=== PATIENT | female | born 1965 | race African-American/Black ===

== ENCOUNTER 2018-01-16 12:36 | Emergency (ER) | payer OTHER ==
[~2018-01-16] VITALS: Ht 170.2 cm; Wt 99.0 kg
[~2018-01-16 12:36] MED LIST: ALBU0.086 INH; ALPR0.5T99 PO; AMIT24CA9 PO; AMIT8CAP6 OR; ASPI1TAB57 PO; ASPI81 PO; BETH10TA2 PO; BETH25TA3 PO; CIPR500T4 PO; COUM10TA PO; DIAZ2 PO; DILTCD240 PO; GLUCTAB PO; HYDR-3366 PO; ISOS30 OR; METF500T PO; METO25TA3 PO; MONT10TA2 PO; NITR0.4S SL; NITR1SUB3 SL; PANT20TA2 PO; ROSU20 PO; TRAM50TA PO; TUSSSUS PO; WARF-21 PO; ZOLP10TA3 PO
[2018-01-16 12:54] VITALS: BP 105/55; PULSE 89; RESP 16; TEMP 98.4; O2SAT 98
[2018-01-16 13:25] LABS: BASOPHIL % 0.6 % (0.0-2.0); EOSINOPHIL # 0.1 TH/MM3 (0-0.4); EOSINOPHIL % 1.2 % (0.0-4.0); HEMATOCRIT 36.6 % (35.0-46.0); HEMOGLOBIN 12.3 GM/DL (11.6-15.3); LYMPH % 39.2 % (9.0-44.0); LYMPHOCYTE # 2.9 TH/MM3 (1.0-4.8); MEAN CELL VOLUME 84.4 FL (80.0-100.0); MEAN CORPUSCULAR HEMOGLOBIN 28.3 PG (27.0-34.0); MEAN CORPUSCULAR HGB CONC 33.5 % (32.0-36.0); MEAN PLATELET VOLUME 9.8 FL (7.0-11.0); MONO % 5.9 % (0.0-8.0); MONOCYTE # 0.4 TH/MM3 (0-0.9); NEUT % 53.1 % (16.0-70.0); PLATELET COUNT 256 TH/MM3 (150-450); RED BLOOD COUNT 4.33 MIL/MM3 (4.00-5.30); RED CELL DISTRIBUTION WIDTH 14.8 % (11.6-17.2); WHITE BLOOD COUNT 7.5 TH/MM3 (4.0-11.0)
[2018-01-16 13:32] LABS: INTERNATIONAL NORMALIZED RATIO 1.8 RATIO; PROTHROMBIN TIME - PATIENT 18.1 SEC (9.8-11.6)
[2018-01-16 13:40] LABS: ALBUMIN 3.5 GM/DL (3.4-5.0); ALT (GPT) 35 U/L (10-53); AST (GOT) 23 U/L (15-37); BICARBONATE 26.8 MEQ/L (21.0-32.0); BLOOD UREA NITROGEN 9 MG/DL (7-18); CALCIUM 8.9 MG/DL (8.5-10.1); CHLORIDE 106 MEQ/L (98-107); CREATININE 0.94 MG/DL (0.50-1.00); GLOMERULAR FILTRATION RATE 63 ML/MIN (>89); GLUCOSE,RANDOM 151 MG/DL (74-106); SODIUM (NA) 141 MEQ/L (136-145)
[2018-01-16 13:41] LABS: ALKALINE PHOSPHATASE 107 U/L (45-117); TOTAL BILIRUBIN ADULT 0.4 MG/DL (0.2-1.0)
[2018-01-16] MEDS ORDERED: AMLO5TAB2 PO (14:58)
[2018-01-16] MEDS ORDERED: ONDANSETRON HCL 4 MG/2 ML VIAL IV ONE (15:00)
[2018-01-16] MEDS ORDERED: SODIUM CHLOR 0.9% 1000 ML INJ 1,000 ML IV ONE (15:00)
--- NOTE | 2018-01-16 15:06 | PD ---
HPI Chief Complaint: Syncope/Near-Syncope Time Seen by Provider: 14:49 Travel History International Travel<30 days: No Contact w/Intl Traveler<30days: No Traveled to known affect area: No History of Present Illness HPI The patient was seen and examined in the presence of the nurse. This patient reported that shortly before noon she had a spell of passing out at work. She was feeling dizzy and lightheaded prior to that. She saw her lead java software engineer yesterday. He started a new medication at night which is amlodipine 10 mg. She took it for the first time last night. Today her blood pressure is been lower than usual. Currently is 105/55. 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 She does not have any chest pain. She reports that she hit her head when she passed out and complains of headache. She does not have any neck pain. Severity is moderate. No alleviating factors. No exacerbating factors. Duration 3 hours PFSH Past Medical History Asthma: No Blood Disorders: No Heart Rhythm Problems: No Cancer: No Cardiovascular Problems: No High Cholesterol: No Chemotherapy: No Chest Pain: No Congestive Heart Failure: No COPD: No Diabetes: Yes Patient Takes Glucophage: Yes Endocrine: Yes Gastrointestinal Disorders: Yes (gastroparesis) Genitourinary: No Immune Disorder: No Implanted Vascular Access Dvce: Yes Musculoskeletal: No Neurologic: No Psychiatric: No Reproductive: No Respiratory: No Myocardial Infarction: Yes (2008) Radiation Therapy: No Sleep Apnea: No Tetanus Vaccination: < 5 Years Influenza Vaccination: No ?: Not : 2 Para: 1 Miscarriage: 0 : 0 Past Surgical History Abdominal Surgery: Yes (UMBILICAL HERNIA REPAIR) Body Medical Devices: cervical fusion plate Gynecologic Surgery: Yes (HYSTERECTOMY) Hysterectomy: Yes (FULL) Other Surgery: Yes (LAPAROTOMY, LYMPH NODE BIOPSY (GROIN)) Social History Alcohol Use: No Tobacco Use: No Substance Use: No Allergies-Medications (Allergen,Severity, Reaction): Coded Allergies: acetaminophen (Unverified Allergy, Severe, RASH, 01/16/18) adhesive (Unverified Allergy, Severe, RASH, 01/16/18) propoxyphene (Unverified Allergy, Severe, RASH, 01/16/18) Reported Meds & Prescriptions Reported Meds & Active Scripts Active Warfarin 7.5 Mg Tab 7.5 Mg PO DAILY MOWEFR Warfarin 7.5 Mg Tab 8.5 Mg PO DAILYSUTUTHSA Rumely (Hydrocodone-Acetaminophen) 10-325 Mg Tab 1 Tab PO Q4H PRN Reported Amlodipine (Amlodipine Besylate) 5 Mg Tab 5 Mg PO DAILY Zolpidem (Zolpidem Tartrate) 10 Mg Tab 10 Mg PO HS PRN Tramadol (Tramadol HCl) 50 Mg Tab 50 Mg PO Q4H PRN Nitroglycerin SL (Nitroglycerin) 0.4 Mg Subl 0.4 Mg SL DIRECTED PRN ONE TABLET UNDER THE TONGUE NEEDED FOR CHEST PAIN, MAY REPEAT EVERY FIVE MINUTES FOR A TOTAL OF 3 DOSES OR CALL 911 IF NO RELIEF Amitiza (Lubiprostone) 24 Mcg Cap 24 Mg PO BID Pantoprazole (Pantoprazole Sodium) 20 Mg Tab 20 Mg PO DAILY Bethanechol 10 Mg Tab 10 Mg PO BID Metformin (Metformin HCl) 500 Mg Tab 500 Mg PO BIDPC With meals Aspirin 81 (Aspirin) 81 Mg Tabdr 2 Tab PO DAILY Review of Systems General / Constitutional: No: Fever Eyes: No: Visual changes HENT: Positive: Headaches, Lightheadedness Cardiovascular: Positive: Syncope, No: Chest Pain or Discomfort Respiratory: No: Shortness of Breath Gastrointestinal: Positive: Nausea, No: Abdominal Pain Genitourinary: No: Dysuria Musculoskeletal: No: Pain Skin: No Rash Neurologic: Positive: Dizziness, Syncope, Headache, No: Weakness Psychiatric: No: Depression Endocrine: No: Polydipsia Hematologic/Lymphatic: No: Easy Bruising Physical Exam Narrative GENERAL: Well-nourished, well-developed patient in no apparent distress. SKIN: Focused skin assessment reveals no rash and nodules. Skin is Warm and dry. HEAD: Atraumatic. Normocephalic. EYES: Pupils equal and round. No scleral icterus. No injection or drainage. ENT: No nasal bleeding or discharge. Mucous membranes pink and moist. NECK: Trachea midline. No JVD. No midline tenderness CARDIOVASCULAR: Regular rate and rhythm. No murmur appreciated. RESPIRATORY: No accessory muscle use. Clear to auscultation. Breath sounds equal bilaterally. GASTROINTESTINAL: Abdomen soft, non-tender, nondistended. Hepatic and splenic margins not palpable. MUSCULOSKELETAL: No obvious deformities. No clubbing. No cyanosis. No edema. NEUROLOGICAL: Awake and alert. No obvious cranial nerve deficits. Motor grossly within normal limits. Normal speech. PSYCHIATRIC: Appropriate mood and affect; insight and judgment normal. Data Data Last Documented VS Vital Signs Date Time Temp Pulse Resp B/P (MAP) Pulse Ox O2 Delivery O2 Flow Rate FiO2 01/16/18 17:31 82 17 138/83 (101) 98 Room Air 01/16/18 12:54 98.4 Orders Orders Electrocardiogram (01/16/18 12:56) Complete Blood Count With Diff (01/16/18 12:56) Comprehensive Metabolic Panel (01/16/18 12:56) Iv Access Insert/Monitor (01/16/18 12:56) Prothrombin Time / Inr (Pt) (01/16/18 13:00) Ct Brain W/O Iv Contrast(Rout) (01/16/18 ) Sodium Chlor 0.9% 1000 Ml Inj (Ns 1000 M (01/16/18 15:00) Ondansetron Inj (Zofran Inj) (01/16/18 15:00) Labs Laboratory Tests Test 01/16/18 13:00 White Blood Count 7.5 TH/MM3 Red Blood Count 4.33 MIL/MM3 Hemoglobin 12.3 GM/DL Hematocrit 36.6 % Mean Corpuscular Volume 84.4 FL Mean Corpuscular Hemoglobin 28.3 PG Mean Corpuscular Hemoglobin Concent 33.5 % Red Cell Distribution Width 14.8 % Platelet Count 256 TH/MM3 Mean Platelet Volume 9.8 FL Neutrophils (%) (Auto) 53.1 % Lymphocytes (%) (Auto) 39.2 % Monocytes (%) (Auto) 5.9 % Eosinophils (%) (Auto) 1.2 % Basophils (%) (Auto) 0.6 % Neutrophils # (Auto) 4.0 TH/MM3 Lymphocytes # (Auto) 2.9 TH/MM3 Monocytes # (Auto) 0.4 TH/MM3 Eosinophils # (Auto) 0.1 TH/MM3 Basophils # (Auto) 0.0 TH/MM3 CBC Comment DIFF FINAL Differential Comment Prothrombin Time 18.1 SEC Prothromb Time International Ratio 1.8 RATIO Blood Urea Nitrogen 9 MG/DL Creatinine 0.94 MG/DL Random Glucose 151 MG/DL Total Protein 8.0 GM/DL Albumin 3.5 GM/DL Calcium Level 8.9 MG/DL Alkaline Phosphatase 107 U/L Aspartate Amino Transf (AST/SGOT) 23 U/L Alanine Aminotransferase (ALT/SGPT) 35 U/L Total Bilirubin 0.4 MG/DL Sodium Level 141 MEQ/L Potassium Level 3.8 MEQ/L Chloride Level 106 MEQ/L Carbon Dioxide Level 26.8 MEQ/L Anion Gap 8 MEQ/L Estimat Glomerular Filtration Rate 63 ML/MIN [facility] Medical Decision Making Medical Screen Exam Complete: Yes Emergency Medical Condition: Yes Medical Record Reviewed: Yes Differential Diagnosis Hypotensive episode, vasovagal episode, cardiac arrhythmia, medication side effect Narrative Course I have reviewed the patient's electronic medical record. Patient was seen here 13 months ago for syncope and I reviewed that hospitalization CBC and metabolic profiles are normal Her EKG shows a sinus rhythm without ectopy or ST elevation Extended cardiac monitoring reveals sinus rhythm without ectopy I gave her 1 L normal saline IV and IV Zofran Will reassess her pressure and observe her on the monitor for a time Brain CT is negative After a lengthy observation. She is doing well. She is not symptomatic at this time. She has a standing blood pressure 136 systolic I advised her to cut her amlodipine in half and continue to track her blood pressures closely. She replies that she does not want the medicine anymore and is not going to take it. I advised her to discuss with her prescribing physician Diagnosis Primary Impression: Syncopal episodes Qualified Codes: R55 - Syncope and collapse Additional Impressions: Head injury Qualified Codes: S09.90XA - Unspecified injury of head, initial encounter Medication side effect Additional Instructions: The patient was advised to follow up with their physician and return if they worsen. Check and record blood pressure daily Cut amlodipine in half or stop taking it Med/Other Pt SpecificInfo: Other Disposition: 01 DISCHARGE HOME Condition: Stable Jeffrey Salvador MD Jan 16, 2018 15:06
--- NOTE | 2018-01-16 15:57 | RADRPT ---
EXAM DATE/TIME: 01/16/2018 15:43 [facility] COMPARISON: CT BRAIN W/O CONTRAST, December 01, 2016, 19:33. INDICATIONS : Syncope MEDICAL HISTORY : Diabetes mellitus type 2. Gastroparesis. SURGICAL HISTORY : None. ENCOUNTER: Initial ACUITY: 1 day PAIN SCALE: 0/10 LOCATION: cranial TECHNIQUE: Multiple contiguous axial images were obtained of the head. Using automated exposure control and adj ustment of the mA and/or kV according to patient size, radiation dose was kept as low as reasonably a chievable to obtain optimal diagnostic quality images. DICOM format image data is available electro nically for review and comparison. FINDINGS: CEREBRUM: The ventricles are normal for age. No evidence of midline shift, mass lesion, hemorrhage or acute in farction. No extra-axial fluid collections are seen. POSTERIOR FOSSA: The cerebellum and brainstem are intact. The 4th ventricle is midline. The cerebellopontine angle i s unremarkable. EXTRACRANIAL: The visualized portion of the orbits is intact. SKULL: The calvaria is intact. No evidence of skull fracture. CONCLUSION: Negative for acute process Bautista Sorenson MD FACR on January 16, 2018 at 15:55 Board Certified Radiologist. This report was verified electronically.
[2018-01-16 16:24] VITALS: BP 124/62; PULSE 82; RESP 18; O2SAT 99
[2018-01-16 17:31] VITALS: BP 138/83; PULSE 82; RESP 17; O2SAT 98
[2018-01-16] MEDS ORDERED: KETOROLAC TROMETHAMINE 30 MG/ML (IVP) VIAL IVP ONE (18:00)
--- NOTE | 2018-01-17 11:18 | EKG ---
Date Performed: 01/16/2018 Time Performed: 12:47:31 PTAGE: 52 years EKG: Sinus rhythm POSSIBLE LEFT ATRIAL ENLARGEMENT POSSIBLE INFERIOR MYOCARDIAL INFARCTION BORDERLINE ECG Since the pr ior tracing, there has been no significant change PREVIOUS TRACING : 12/02/2016 06.27 DOCTOR: Fabián Medina Interpretating Date/Time 01/17/2018 11:14:07
== END 2018-01-16 18:28 | disposition home or self-care (01) ==
LOC: NEDAMB 12:36 → MERGE 12:36 → NEPE 18:28
DX: R55 Syncope and collapse (principal); S09.90XA Unspecified injury of head, initial encounter; E11.9 Type 2 diabetes mellitus without complications; R94.31 Abnormal electrocardiogram [ECG] [EKG]; W01.198A Fall on same level from slipping, tripping and stumbling with subsequent striking against other object, initial encounter; Y99.0 Civilian activity done for income or pay; Z79.01 Long term (current) use of anticoagulants
CPT/HCPCS: 70450; 80053; 85025; 85610; 93005; 96361; 96374; 96375; 99285; J1885; J2405; J7030